=== PATIENT | female | born 1960 | race Hispanic/Latino ===

== ENCOUNTER 2021-12-01 13:39 | Emergency (ER) | payer MEDICAID, OTHER ==
[2021-12-01] MEDS ORDERED: traMADol HCl 50 MG TAB ONE (14:48)
== END 2021-12-01 15:00 | disposition home or self-care (01) ==
LOC: CSHERS 13:39
DX: S40.021A Contusion of right upper arm, initial encounter (principal); I10 Essential (primary) hypertension; E10.9 Type 1 diabetes mellitus without complications; Z85.3 Personal history of malignant neoplasm of breast; W22.8XXA Striking against or struck by other objects, initial encounter